=== PATIENT | male | born 1930 | race Hispanic/Latino ===

== ENCOUNTER 2016-08-29 06:26 | Day surgery (SDC) | payer MEDICARE ==
[2016-08-29] MEDS ORDERED: TETRACAINE 0.5% OD PRN (07:37)
--- NOTE | 2016-08-29 07:48 | Anesthesia Consultation ---
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
--- NOTE | 2016-08-29 07:49 | Anesthesia Day of Surgery ---
Anesthesia Day of Surgery - Day of Surgery Patient Examined: Yes Patient H&P Reviewed: Yes Patient is NPO: Yes
[2016-08-29] MEDS: VIGAMOX OD SCH ×3 (08:01→08:11)
[2016-08-29] MEDS ORDERED: mitoMYcin 0.02% Opth Soln *OR USE ONLY OD SCH (09:00)
[2016-08-29] MEDS ORDERED: PRED FORTE 1% OD SCH (09:00)
[2016-08-29] MEDS ORDERED: PROSHIELD COLLAGEN CORNEAL SHIELD TP ONE (09:00)
[2016-08-29] MEDS ORDERED: VERSED ONE (10:04)
[2016-08-29] MEDS ORDERED: ADRENALINE P/F IV ONE (10:27)
[2016-08-29] MEDS ORDERED: VIGAMOX OD ONE (10:27)
[2016-08-29] MEDS ORDERED: XYLOCAINE MPF 1% INFILTRATI ONE (10:27)
[2016-08-29] MEDS ORDERED: mitoMYcin 0.02% Opth Soln *OR USE ONLY OD ONE (10:27)
--- NOTE | 2016-08-29 11:00 | Short Stay Summary ---
Short Stay Documentation Date of service: 08/29/16 - History H&P: obtained from office - Allergies and Medications Current Medications: Allergies No Known Allergies Allergy (Unverified 08/21/16 13:47) Home Medications Medication Instructions Recorded Confirmed Last Taken Type Aspirin [Aspirin BABY CHEW TAB] 81 mg PO QDAY 08/21/16 08/21/16 Unknown History Bisacodyl [Dulcolax tab] 1 tab PO QHS 08/21/16 08/21/16 Unknown History Doxazosin Mesylate [Doxazosin 1 tab PO DAILY 08/21/16 08/21/16 Unknown History Mesylate] Finasteride [Proscar] 1 tab PO DAILY 08/21/16 08/21/16 Unknown History amLODIPine [Norvasc] 1 tab PO DAILY 08/21/16 08/21/16 Unknown History Active Medications Mitomycin (Mitomycin 0.02% Opth Soln *Or Use Only*) 1 drops OD DIRECT LUPE Stop: 08/29/16 16:00 Moxifloxacin HCl (Vigamox) 1 drops OD Q5MIN LUPE Stop: 08/31/16 16:00 Last Admin: 08/29/16 08:11 Dose: 1 drops Prednisolone Acetate (Pred Forte 1%) 1 drops OD QID LUPE Stop: 08/29/16 18:00 Tetracaine HCl (Tetracaine 0.5%) 1 drops OD Q5M PRN PRN Reason: Analgesia Stop: 08/29/16 16:00 Last Admin: 08/29/16 08:02 Dose: 1 drops - Brief post op/procedure progress note Date of procedure: 08/29/16 Pre-op diagnosis: pterygium OD Post-op diagnosis: same Procedure: Pterygium excision with amniotic graft membrane placement and mitomycin-C right eye Anesthesia: MAC Surgeon: LONG KINCAID Estimated blood loss: none Pathology: none Condition: stable - Disposition Condition at discharge: Good Disposition: DISCHARGED TO HOME OR SELFCARE - Discharge Diagnoses (1) Pterygium of right eye Status: Acute
--- NOTE | 2016-08-29 11:05 | Operative Report ---
Operative Report Operative Report: PATIENT'S NAME: DATE OF : DATE OF SURGERY: 08/29/2016 PREOPERATIVE DIAGNOSIS: Pterygium right eye POSTOPERATIVE DIAGNOSIS: Same OPERATIVE PROCEDURE: Pterygium excision with mitomycin-C and amniotic left membrane placement right eye SURGEON: Cate Live M.D. ROTARY DRILLER SURGEON: Franky ANESTHESIA: Monitored anesthesia care in combination with topical and intracameral anesthesia because of the established specific risk of reflux, arrhythmias, or anxiety attacks associated with ocular manipulation, as well as the difficulty of the records management director to manage such potentially catastrophic events while simultaneously attempting to complete the surgical procedure and was deemed necessary for the patient's safety to have an Design Maker present during the procedure whenever possible. An Design Maker was utilized to regulate the intravenous sedation of the patient so the patient was cooperative yet not asleep in order for the patient to successfully maintain fixation of the eye on the operating light of the microscope. COMPLICATIONS: [No surgical complications] ALLERGIES: [No known drug allergies] PROGNOSIS: Excellent INDICATIONS FOR SURGERY: The patient is undergoing surgery in the hopes of eliminating or improving these visual difficulties. PROCEDURE: . After arriving at the surgery center, the patient was given topical anesthetic and dilating drops, as noted in the record. The patient was then taken into the operating room and given more anesthetic drops. The eyelids, lashes, and lid margins were scrubbed with Betadine solution, and the patient was draped. The Nurse Design Maker administered IV sedation and monitored the patient during the procedure. Calipers were used to measure 5 mm from the cornea temporally a postvoid cutting any of the eye muscles once this was done 1% lidocaine preservative free was injected under the bed after pterygium. [place]ma scissors were used to excise to to return from sclera. [place] blade was used to remove the head of the pterygium from the cornea. Cautery at 30 was undertaken to stop all bleeders. Corneal bur was used to smooth the cornea. Mitomycin C was applied to the scleral bed for 1 minute. Amniotic graft membrane was placed under bare sclera. Tisseel glue contact lens was placed on the cornea patient was taken to recovery room in stable condition
--- NOTE | 2016-08-29 12:29 | Post Anesthesia Evaluation ---
- Post Anesthesia Evaluation Patient Participated: Yes Airway Patent: Yes Stable Respiratory Function: Yes Nausea/Vomiting: No Temp > 96.8F: Yes Pain Manageable: Yes Adequeate Hydration: Yes Anesthesia Complications: No
[2016-08-29 14:21] VITALS: BP 129/63
== END 2016-08-29 12:10 | disposition home or self-care (01) ==
LOC: OR 06:26
DX: H11.001 Unspecified pterygium of right eye (principal); I10 Essential (primary) hypertension; E78.00 Pure hypercholesterolemia, unspecified; Z98.890 Other specified postprocedural states; Z72.89 Other problems related to lifestyle; Z85.828 Personal history of other malignant neoplasm of skin; Z87.891 Personal history of nicotine dependence
CPT/HCPCS: 65426; 88304; J0171; J2250; J7315; V2790